=== PATIENT | male | born 1990 | race Caucasian/White ===

== ENCOUNTER 2021-04-15 08:14 | Emergency (ER) | payer BC ==
[2021-04-15] MEDS ORDERED: Ketorolac 15 MG/ML SDV IM ONE (08:47)
[2021-04-15] MEDS ORDERED: Ondansetron 4 MG Tab.DIS PO ONE (08:47)
--- NOTE | 2021-04-15 08:48 | EDM.PDOC ---
ED HPI GENERAL MEDICAL PROBLEM - General Chief Complaint: Respiratory Problem Stated Complaint: SOB WEAK FEVER Time Seen by Provider: 04/15/21 09:00 Source of Information: Reports: Patient History Limitations: Reports: No Limitations - History of Present Illness INITIAL COMMENTS - FREE TEXT/NARRATIVE: 31-year-old male with no past medical history presenting with a chief complaint of fatigue, fevers, nausea, bodyaches. He reports symptoms have been ongoing since Wednesday. His is sick with similar symptoms. Patient has been taking Tylenol for symptom relief with only mild relief. He received a COVID test just prior to arrival which was positive. He is unvaccinated against COVID. He is currently denying any shortness of breath, chest pain, difficulty breathing. Primarily here because of feelings of nausea. He states he is able to drink water but tends to avoid doing so because it makes him feel nauseous. He reports some dry lips. Otherwise is denying vomiting and diarrhea. - Related Data Allergies Allergy/AdvReac Type Severity Reaction Status Date / Time No Known Allergies Allergy Verified 04/15/21 08:25 Home Meds: Home Meds . [No Known Home Meds] 04/15/21 [History] Past Medical History - Past Surgical History Musculoskeletal Surgical History: Reports: Arthroscopic Knee Other Musculoskeletal Surgeries/Procedures:: L femur broke, Social & Family History - Tobacco Use Used Tobacco, but Quit: No - Caffeine Use Caffeine Use: Reports: Energy Drinks - Recreational Drug Use Recreational Drug Use: No ED ROS GENERAL - Review of Systems Review Of Systems: See Below Free Text/Narrative/Comment: In addition to that documented in the HPI above, the additional ROS was obtained: Constitutional: HPI Eyes: Denies vision changes ENMT: Denies sore throat CV: Denies chest pain Resp: Denies SOB GI: Denies vomiting or diarrhea : Denies painful urination MSK: Denies recent trauma Skin: Denies new rashes Neuro: Denies new numbness or tingling or weakness Endocrine: Denies unexpected weight loss Heme: Denies bleeding disorders ED EXAM, GENERAL - Physical Exam Exam: See Below Free Text/Narrative:: I have reviewed the triage vital signs Const: Well nourished, well developed, appears stated age Eyes: Pupils Equal and reactive to light bilaterally, no conjunctival injection HENT: No signs of trauma or swelling, Neck supple without meningismus CV: Regular Rate Rhythm, Warm, well-perfused extremities RESP: Unlabored respiratory effort GI: soft, non-tender, non-distended, no masses MSK: No gross deformities appreciated Skin: Warm, dry. No rashes Neuro: Alert, general sales manager II-XII grossly intact. Sensation and motor function of extremities grossly intact. Psych: Appropriate mood and affect. Course - Vital Signs Last Recorded V/S: Last Vital Signs Temp 38.0 C 04/15/21 08:22 Pulse 107 H 04/15/21 08:22 Resp 16 04/15/21 08:22 BP 148/100 H 04/15/21 08:22 Pulse Ox 96 04/15/21 08:22 - Orders/Labs/Meds Meds: Medications Discontinued Medications Generic Name Dose Route Start Last Admin Trade Name Valentina PRN Reason Stop Dose Admin Ketorolac Tromethamine 15 mg 04/15/21 08:47 04/15/21 09:04 Ketorolac 15 Mg/Ml Sdv IM 04/15/21 08:48 15 mg ONETIME ONE Administration Ondansetron HCl 4 mg 04/15/21 08:47 04/15/21 09:04 Ondansetron 4 Mg Tab.Dis PO 04/15/21 08:48 4 mg ONETIME ONE Administration Departure - Departure Time of Disposition: 08:48 Disposition: Home, Self-Care 01 Clinical Impression: COVID-19, Nausea - Discharge Information Instructions: COVID-19 Referrals: PCP,None [Primary Care Provider] - Forms: ED Department Discharge Sepsis Event Note (ED) - Evaluation Sepsis Screening Result: No Definite Risk - Focused Exam Vital Signs: Vital Signs Temp Pulse Resp BP Pulse Ox 04/15/21 08:22 38.0 C 107 H 16 148/100 H 96 - Assessment/Plan Assessment:: Patient is a well-appearing 31-year-old male with COVID. He is not in respiratory distress or hypoxic. Symptoms are consistent with COVID-19 infection. He will be given Zofran and ketorolac. Return precautions discussed as usual. No further work-up indicated. Discharged in stable condition.
== END 2021-04-15 09:10 | disposition home or self-care (01) ==
LOC: JD.ED 08:14
DX: U07.1 COVID-19 (principal)
CPT/HCPCS: 96372; 99283; A9270; J1885